=== PATIENT | male | born 1970 ===

== ENCOUNTER 2016-08-04 15:05 | Outpatient (CLI) | payer BC | END 2016-08-04 15:06 | disposition home or self-care (01) | LOC: LABHHL 15:05 | PROVIDERS: ATTEND Internal Medicine Gastroenterology | DX: K30 Functional dyspepsia (principal); R10.9 Unspecified abdominal pain; Z86.19 Personal history of other infectious and parasitic diseases | CPT/HCPCS: 88305; 88342 ==